=== PATIENT | female | born 1945 | race Caucasian/White ===

== ENCOUNTER 2021-03-31 12:54 | Inpatient (IN) | payer MEDICARE, OTHER ==
[2021-03-31] MEDS ORDERED: ATORVASTATIN 80 MG TAB PO STA (13:02)
[2021-03-31] MEDS ORDERED: LIDOCAINE 1% INJ 10MG/ML (20 ML MDV) ONE (13:03)
[2021-03-31] MEDS ORDERED: HEPARIN SODIUM 1,000 UN/ML (10ML VL) ONE (13:03)
[2021-03-31] MEDS ORDERED: VERAPAMIL 2.5 MG/ML 2 ML AMP ONE (13:03)
[2021-03-31 13:05] LABS: Basophils % (A) 0 %; Eosinophils % (A) 0 %; HGB 12.1 gm/dL (11.4-16.0); Lymphocytes # (A) 0.8 k/uL (1.0-4.8); Lymphocytes % (A) 9 %; MCH 32.3 pg (25.0-35.0); MCHC 32.7 g/dL (31.0-37.0); MCV 98.9 fL (80.0-100.0); Macrocytosis Slight; Mean Platelet Volume 8.8; Monocytes # (A) 0.7 k/uL (0-1.0); Monocytes % (A) 9 %; Neutrophils # (A) 6.4 k/uL (1.3-7.7); Neutrophils % (A) 79 %; Platelet Count 189 k/uL (150-450); RBC 3.74 m/uL (3.80-5.40); RDW 14.9 % (11.5-15.5); WBC 8.1 k/uL (3.8-10.6)
[2021-03-31] MEDS ORDERED: MIDAZOLAM PF (FBP) 2 MG/2 ML VIAL IVP STA (13:06)
[2021-03-31] MEDS ORDERED: MIDAZOLAM 1 MG/ML 5 ML VIAL IVP STA (13:06)
[2021-03-31] MEDS ORDERED: fentaNYL (PF) 50 MCG/ML 2 ML AMP IVP STA (13:06)
[2021-03-31] MEDS ORDERED: MIDAZOLAM HCL 5 MG/ML IVP STA (13:06)
[2021-03-31] MEDS ORDERED: MIDAZOLAM 2 MG/2 ML VIAL IVP STA (13:06)
[2021-03-31] MEDS ORDERED: SODIUM CHLORIDE 0.9% 1,000 ML IV STA (13:07)
[2021-03-31 13:13] LABS: INR 3.9 (<1.2); Prothrombin Time 37.4 sec (9.0-12.0)
[2021-03-31 13:14] LABS: Albumin 3.8 g/dL (3.5-5.0); Calcium 9.6 mg/dL (8.4-10.2); Magnesium 1.9 mg/dL (1.6-2.3); Potassium 4.9 mmol/L (3.5-5.1); Total Bilirubin 1.1 mg/dL (0.2-1.3); Total Protein 5.9 g/dL (6.3-8.2)
--- NOTE | 2021-03-31 13:21 | ED ---
General Adult HPI - General Chief complaint: Chest Pain Stated complaint: stemi Time Seen by Provider: 03/31/21 12:55 Source: patient, EMS, RN notes reviewed, old records reviewed Mode of arrival: EMS Limitations: no limitations - History of Present Illness Initial comments: 75-year-old female presented as an out of Hospital ST segment elevated [place]. The Certified Flight Instructor was activated prior to the patient's arrival. Upon arrival the patient is pale, hypotensive, tachycardic. She had developed upper chest pain and right arm pain over the past 12 hours. She is a significant history including atrial fibrillation status post pacemaker, mitral valve replacement, and coronary artery disease status post bypass. She is on Coumadin. She had some nausea and vomiting associated with her chest pain. - Related Data Allergies Allergy/AdvReac Type Severity Reaction Status Date / Time amoxicillin Allergy Unknown Verified 03/31/21 13:13 Review of Systems ROS Statement: Those systems with pertinent positive or pertinent negative responses have been documented in the HPI. ROS Other: All systems not noted in ROS Statement are negative. Past Medical History History of Any Multi-Drug Resistant Organisms: None Reported Past Psychological History: No Psychological Hx Reported Smoking Status: Never smoker Past Alcohol Use History: None Reported Past Drug Use History: None Reported General Exam Limitations: no limitations General appearance: alert, in distress Head exam: Present: atraumatic, normocephalic Eye exam: Present: normal appearance, PERRL ENT exam: Present: normal exam Neck exam: Present: normal inspection. Absent: tenderness, meningismus Respiratory exam: Present: normal lung sounds bilaterally. Absent: respiratory distress, wheezes Cardiovascular Exam: Present: regular rate, tachycardia GI/Abdominal exam: Present: soft. Absent: distended, tenderness, guarding Extremities exam: Present: normal capillary refill. Absent: pedal edema Neurological exam: Present: alert, oriented X3, CN II-XII intact. Absent: motor sensory deficit Psychiatric exam: Present: anxious Skin exam: Present: warm, pallor Course Vital Signs 03/31/21 03/31/21 03/31/21 12:57 12:59 13:02 Pulse Rate 146 H 147 H 150 H Respiratory 20 18 20 Rate Blood Pressure 89/69 99/70 96/70 O2 Sat by Pulse 97 98 100 Oximetry EKG Findings - EKG Comments: EKG Findings:: Initial EKG, narrow complex tachycardia with significant ST segment elevation inferiorly. Rate of 148, suspect atrial flutter with 2-1 conduction. QRS complexes 116, QTC is 546. Repeat EKG after cardioversion, electronically paced rhythm narrow complex with improved ST segment elevation but still persistent in the inferior leads with reciprocal change. Rate is 66. NJ interval 118, QRS duration 114, QTC 427. Procedures - Procedures Initial comment: Patient presenting with ischemic EKG and a supraventricular tachycardia with hypotension. Electrical cardioversion was performed in the emergency department. Patient gave verbal consent. She was premedicated for procedural sedation with Versed and fentanyl. She had supplemental oxygen, IV established, she was placed on the monitor. 100 J was delivered and the patient converted into a "paced rhythm. - Procedural Sedation Procedural Sedation Start Time: 13:05 Procedural Sedation Stop Time: 13:20 Indications: other (Cardioversion) ASA Class: III Mallampati Airway Score: 2 Preparation: court recording monitor applied, pulse oximeter, supplemental O2 applied, suction/airway equipment at bedside, IV secured Fentanyl: IV Fentanyl Dose: 50 Midazolam: IV Midazolam Dose: 2 Complications: none Patient Tolerated Procedure: well, no complications Medical Decision Making - Medical Decision Making 69 sexual female presenting with ST segment elevated WI. Upon arrival patient i s pale, hypotensive she is tachycardic in what appears to be in atrial flutter with 2-[address] segment elevation and reciprocal depression. Dr. Mackay had been contacted prior to the patient's arrival and he is able to evaluate the patient in the emergency department. We agreed to cardiovert the patient prior to Certified Flight Instructor. She was given fentanyl and Versed and 100 J cardioversion. She converted with significant improvement in ST segment elevation however there was still ST segment changes requiring intervention. She's taken urgently to the Certified Flight Instructor. Case discussed with Dr. Wagner who will admit. - Lab Data Result diagrams: 03/31/21 12:58 03/31/21 12:58 Lab Results 03/31/21 03/31/21 03/31/21 Range/Units 12:58 12:58 12:58 WBC 8.1 (3.8-10.6) k/uL RBC 3.74 L (3.80-5.40) m/uL Hgb 12.1 (11.4-16.0) gm/dL Hct 37.0 (34.0-46.0) % MCV 98.9 (80.0-100.0) fL MCH 32.3 (25.0-35.0) pg MCHC 32.7 (31.0-37.0) g/dL RDW 14.9 (11.5-15.5) % Plt Count 189 (150-450) k/uL MPV 8.8 Neutrophils % 79 % Lymphocytes % 9 % Monocytes % 9 % Eosinophils % 0 % Basophils % 0 % Neutrophils # 6.4 (1.3-7.7) k/uL Lymphocytes # 0.8 L (1.0-4.8) k/uL Monocytes # 0.7 (0-1.0) k/uL Eosinophils # 0.0 (0-0.7) k/uL Basophils # 0.0 (0-0.2) k/uL Macrocytosis Slight PT 37.4 H (9.0-12.0) sec INR 3.9 H (<1.2) APTT 28.0 (22.0-30.0) sec Sodium 139 (137-145) mmol/L Potassium 4.9 (3.5-5.1) mmol/L Chloride 103 (98-107) mmol/L Carbon Dioxide 22 (22-30) mmol/L Anion Gap 14 mmol/L BUN 54 H (7-17) mg/dL Creatinine 1.13 H (0.52-1.04) mg/dL Est GFR (CKD-EPI)AfAm 55 (>60 ml/min/1.73 sqM) Est GFR (CKD-EPI)NonAf 47 (>60 ml/min/1.73 sqM) Glucose 260 H (74-99) mg/dL Calcium 9.6 (8.4-10.2) mg/dL Magnesium 1.9 (1.6-2.3) mg/dL Total Bilirubin 1.1 (0.2-1.3) mg/dL AST 519 H (14-36) U/L ALT 603 H (4-34) U/L Alkaline Phosphatase 129 H (38-126) U/L Total Protein 5.9 L (6.3-8.2) g/dL Albumin 3.8 (3.5-5.0) g/dL Disposition Clinical Impression: ST elevation myocardial infarction (STEMI) Disposition: ADMITTED IP TO THIS HOSP Condition: Serious Is patient prescribed a controlled substance at d/c from ED?: No Referrals: Linh Pritchett DO [Primary Care Provider] - 1-2 days Decision to Admit Reason: Admit from EC Decision Date: 03/31/21 Decision Time: 13:21
[2021-03-31] MEDS: MIDAZOLAM (PF) 5 MG/ML 2 ML VIAL IVP STA ×2 (13:24→13:28)
--- NOTE | 2021-03-31 13:24 | XR ---
EXAMINATION TYPE: XR chest 1V portable DATE OF EXAM: 03/31/2021 HISTORY: Shortness of breath. COMPARISON: None. TECHNIQUE: Single view of the chest is submitted. FINDINGS: Demonstrated are scattered senescent parenchymal change. There is no evidence for focal infiltrate. There is evidence of cardiomegaly. Dual-lead pacer is in place. Hilar and mediastinal structures are within normal limits. Degenerative changes are seen of the dorsal spine. IMPRESSION: 1. Chronic changes without evidence for acute pulmonary disease.
[2021-03-31] MEDS ORDERED: LIDOCAINE 1% INJ 10MG/ML (20 ML MDV) SQ ONE (13:29)
[2021-03-31] MEDS ORDERED: IV FLUID CONTINUATION 1,000 ML IV ONE (13:32)
[2021-03-31] MEDS ORDERED: IOPAMIDOL-370 125ML BTL INJ ONE (13:52)
[2021-03-31] MEDS ORDERED: PHYTONADIONE 2 MG in SODIUM CHLORIDE 0.9% 50 ML IVPB STA (13:59)
[2021-03-31] MEDS ORDERED: NITROGLYCERIN SL TABS 0.4 MG TAB SUBLINGUAL PRN (14:10)
[2021-03-31] MEDS ORDERED: RX INFO: IV CONTRAST WAS GIVEN 1 EACH MISC MISCELLANE PRN (14:12)
[2021-03-31] MEDS ORDERED: SODIUM CHLORIDE 0.9% 1,000 ML IV SCH (14:15)
--- NOTE | 2021-03-31 14:21 | P.CRDCN ---
History of Present Illness Consult date: 03/31/21 Chief complaint: Chest pain History of present illness: This is a 75-year-old female patient with coronary artery disease and status post coronary artery that was grafting with KEVIN to LAD and SVG to diagonal as well as SVG to RCA and also valvular heart disease and status post mitral valve replacement using mechanical valve, the surgery was performed at [facility] 20 years ago according to the patient as well as history of hypertensi on and dyslipidemia and also history of an AICD was brought to the emergency department by ambulance with chest discomfort. The patient does follow with a factory laborer at [facility]. Earlier today she was not feeling well where she suddenly she started experiencing chest discomfort and right arm and right shoulder discomfort. Ambulance was called and the patient was found to be tachycardic with an EKG showing what it seems to be an SVT and significant ST segment elevation inferiorly. Because of pressure was borderline and because she was having chest discomfort the patient received 100 J and she was cardioverted into sinus rhythm. The repeated EKG after she was cardioverted revealed sinus rhythm with ST elevation inferiorly. For that reason the patient was taken emergently for heart catheterization and that revealed the patency of the KEVIN to LAD and SVG to diagonal with mild disease involving the left circumflex coronary artery and occluded right coronary artery with occluded SVG to RCA. The occlusion seems to be chronic and not acute. The patient tolerated the procedure very well. Currently she is chest pain-free. She denies any shortness of breath and denies any dizziness or lightheadedness. Her pressure has improved after she was cardioverted. The procedure was performed from the right groin. On examination she has mechanical first heart sound with very significant systolic murmur at the right and left upper sternal border and also in the apical area. An echocardiogram is in process to be done. Past Medical History History of Any Multi-Drug Resistant Organisms: None Reported Past Psychological History: No Psychological Hx Reported Smoking Status: Never smoker Past Alcohol Use History: None Reported Past Drug Use History: None Reported Medications and Allergies Home Medications Medication Instructions Recorded Confirmed Type Aspirin EC [Ecotrin Low Dose] 81 mg PO DAILY 03/31/21 03/31/21 History Atorvastatin [Lipitor] 40 mg PO HS 03/31/21 03/31/21 History Carvedilol [Coreg] 12.5 mg PO BID 03/31/21 03/31/21 History Cholecalciferol (Vitamin D3) 125 mcg PO DAILY 03/31/21 03/31/21 History [Vitamin D3 (125 MCG = 5,000 IU)] Cyanocobalamin (Vitamin B-12) 1,000 mcg PO DAILY 03/31/21 03/31/21 History [Vitamin B-12] Digoxin [Lanoxin] 125 mcg PO DAILY 03/31/21 03/31/21 History Escitalopram [Lexapro] 10 mg PO DAILY 03/31/21 03/31/21 History Furosemide [Lasix] 20 mg PO DAILY 03/31/21 03/31/21 History Isosorbide Mononitrate ER [Imdur] 60 mg PO DAILY 03/31/21 03/31/21 History Lansoprazole [Prevacid] 30 mg PO DAILY 03/31/21 03/31/21 History Nitroglycerin Sl Tabs [Nitrostat] 0.4 mg SUBLINGUAL Q5M PRN 03/31/21 03/31/21 History Sotalol [Betapace] 120 mg PO BID 03/31/21 03/31/21 History lisinopriL [Zestril] 5 mg PO DAILY 03/31/21 03/31/21 History metFORMIN HCL [Glucophage] 1,000 mg PO BID 03/31/21 03/31/21 History Allergies Allergy/AdvReac Type Severity Reaction Status Date / Time amoxicillin Allergy Unknown Verified 03/31/21 13:13 Physical Exam Vitals: Vital Signs Pulse Resp BP Pulse Ox 03/31/21 13:11 69 20 128/81 100 03/31/21 13:09 66 20 109/66 100 03/31/21 13:07 148 H 20 104/77 100 03/31/21 13:02 150 H 20 96/70 100 03/31/21 12:59 147 H 18 99/70 98 03/31/21 12:57 146 H 20 89/69 97 Intake and Output 03/30/21 03/31/21 03/31/21 22:59 06:59 14:59 Intake Total 100 Balance 100 Intake: IV 100 Other: Weight 58.967 kg - Constitutional General appearance: no acute distress - Respiratory Respiratory: bilateral: diminished - Cardiovascular Rhythm: regular Abnormal Heart Sounds: systolic murmur Results 03/31/21 12:58 03/31/21 12:58 Cardiac Enzymes 03/31/21 03/31/21 Range/Units 12:58 12:58 AST 519 H (14-36) U/L Troponin I 0.323 H* (0.000-0.034) ng/mL Coagulation 03/31/21 Range/Units 12:58 PT 37.4 H (9.0-12.0) sec APTT 28.0 (22.0-30.0) sec CBC 03/31/21 Range/Units 12:58 WBC 8.1 (3.8-10.6) k/uL RBC 3.74 L (3.80-5.40) m/uL Hgb 12.1 (11.4-16.0) gm/dL Hct 37.0 (34.0-46.0) % Plt Count 189 (150-450) k/uL Comprehensive Metabolic Panel 03/31/21 Range/Units 12:58 Sodium 139 (137-145) mmol/L Potassium 4.9 (3.5-5.1) mmol/L Chloride 103 (98-107) mmol/L Carbon Dioxide 22 (22-30) mmol/L BUN 54 H (7-17) mg/dL Creatinine 1.13 H (0.52-1.04) mg/dL Glucose 260 H (74-99) mg/dL Calcium 9.6 (8.4-10.2) mg/dL AST 519 H (14-36) U/L ALT 603 H (4-34) U/L Alkaline Phosphatase 129 H (38-126) U/L Total Protein 5.9 L (6.3-8.2) g/dL Albumin 3.8 (3.5-5.0) g/dL Current Medications Generic Name Dose Route Start Last Admin Trade Name Freq PRN Reason Stop Dose Admin Aspirin 325 mg 04/01/21 09:00 Aspirin 325 Mg Tab PO DAILY [facility] Atorvastatin Calcium 40 mg 03/31/21 21:00 Atorvastatin 40 Mg Tab PO HS [facility] Carvedilol 12.5 mg 03/31/21 21:00 Carvedilol 12.5 Mg Tab PO BID [facility] Digoxin 125 mcg 04/01/21 09:00 Digoxin 250 Mcg Tab PO DAILY [facility] Escitalopram Oxalate 10 mg 04/01/21 09:00 Escitalopram 10 Mg Tab PO DAILY [facility] Furosemide 20 mg 04/01/21 09:00 Furosemide 20 Mg Tab PO DAILY [facility] Phytonadione 2 mg/ Sodium 50.2 mls @ 100 mls/hr 03/31/21 13:59 Chloride IVPB 03/31/21 14:29 ONCE STA Sodium Chloride 1,000 mls @ 75 mls/hr 03/31/21 14:15 Saline 0.9% IV 03/31/21 20:16 .[id number] [facility]A Isosorbide Mononitrate 60 mg 04/01/21 09:00 Isosorbide Mononitrate Er 60 Mg Tab.Er.24h PO DAILY [facility] Lisinopril 5 mg 04/01/21 09:00 Lisinopril 5 Mg Tab PO DAILY [facility] Miscellaneous Information 1 each 03/31/21 14:12 Rx Info: Iv Contrast Was Given 1 Each Misc MISCELLANE 04/02/21 14:12 DAILY PRN Per Protocol Nitroglycerin 0.4 mg 03/31/21 14:10 Nitroglycerin Sl Tabs 0.4 Mg Tab SUBLINGUAL Q5M PRN Chest Pain Non-Formulary Medication 81 mg 04/01/21 09:00 Aspirin Ec PO DAILY [facility] Non-Formulary Medication 125 mcg 04/01/21 09:00 Cholecalciferol (Vitamin D3) [Vitamin D3 (125 Mcg = 5,000 Iu)] PO DAILY [facility] Non-Formulary Medication 1,000 mcg 04/01/21 09:00 Cyanocobalamin (Vitamin B-12) [Vitamin B-12] PO DAILY [facility] Non-Formulary Medication 30 mg 04/01/21 09:00 Lansoprazole [Prevacid] PO DAILY [facility] Sotalol HCl 120 mg 03/31/21 21:00 Sotalol 120 Mg Tab PO BID [facility] Intake and Output 03/30/21 03/31/21 03/31/21 22:59 06:59 14:59 Intake Total 100 Balance 100 Intake: IV 100 Other: Weight 58.967 kg Patient Weight 04/01/21 06:59 Weight 58.967 kg 03/31/21 12:58 03/31/21 12:58 Assessment and Plan Assessment: Assessment #1 supraventricular tachycardia and status post cardioversion #2 coronary artery disease and status post heart catheterization without intervention #3 valvular heart disease with a prior mechanical prosthesis in mitral position #4 hypertension #5 dyslipidemia #6 status post an AICD Plan #1 restart the patient's medications including the beta yecenia as well as digoxin #2 she is on sotalol as well as digoxin as an outpatient we will restart that #3 continue anticoagulation was, the #4 obtain an echocardiogram was Doppler #6 standard groin he care #7 continue monitoring the INR #8 follow-up with the patient
[2021-03-31 14:45] LABS: Glucose,Whole Blood 171 mg/dL (75-99)
--- NOTE | 2021-03-31 14:53 | CC ---
CARDIAC CATHETERIZATION REPORT DATE OF SERVICE: 03/31/2021 PERFORMING PHYSICIAN: Brian Mackay M.D. PROCEDURE PERFORMED: 1. Selective left and right coronary angiogram. 2. Left heart catheterization. INDICATION: This is a very pleasant 75-year-old female patient who presented with chest discomfort and EKG was concerning for acute ST elevation myocardial infarction. APPROACH: Right common femoral artery. COMPLICATIONS: None. LEVEL OF SEDATION: Moderate, with sedation length of 34 minutes. PROCEDURE DESCRIPTION: After obtaining informed consent, the patient was brought to the cardiac labor contract analyst. The right common femoral artery was cannulated using micropuncture technique. The micropuncture wire passed easily. Then I placed a 6-Irish sheath in the right common femoral artery. Selective left and right coronary angiogram was performed with JL4 and JR4 catheters. heart catheterization was not performed. The KEVIN to LAD was performed using an IM catheter. The SVG to diagonal angiogram was performed using the JR4 catheter. The SVG to RCA angiogram was performed using the multipurpose catheter. SELECTIVE CORONARY ANGIOGRAM: 1. The left main is calcified with mild disease only. It bifurcates into LCX and LAD. 2. The LCX is a large-caliber vessel. It is a nondominant vessel and appeared to have mild disease only. It gives rise to first and second obtuse marginal branches. Both appeared to have mild disease only. 3. The LAD. The proximal LAD has a lesion that appeared to be in the range of 60% to 70%. Competitive flow was seen in the mid LAD coming from the KEVIN. 4. The right coronary artery is chronically occluded by the ostium. ANGIOGRAM OF CORONARY BYPASSES: 1. The KEVIN to LAD is patent. 2. The SVG to diagonal has multiple lesions that appeared to be in the range of 40% to 50%. only. 3. The SVG to right coronary artery is occluded. CONCLUSION: 1. Severe disease involving the proximal left anterior descending artery. The KEVIN to LAD is patent. 2. Patent SVG to diagonal branch as well. 3. Mild disease involving the left circumflex system. 4. Occluded right coronary artery. The SVG to RCA is occluded. POSTPROCEDURE MANAGEMENT: 1. Given the above anatomy and in the absence of any acute occlusion, I advise maximized medical treatment. 2. We will obtain an echocardiogram with Doppler. 3. Follow up with the patient. MMODL / IJN: [id number] /
[2021-03-31] MEDS ORDERED: predniSONE 20 MG TAB PO SCH (17:00)
[2021-03-31] MEDS: carvediloL 12.5 MG TAB PO SCH (19:05)
[2021-03-31] MEDS: SOTALOL 120 MG TAB PO SCH (21:01)
--- NOTE | 2021-04-01 01:01 | P.HPIM ---
History of Present Illness H&P Date: 03/31/21 Chief Complaint: RT arm discomfort Patient is a 75-year-old female with a known history of coronary artery disease status post CABG, mitral valve replacement mechanical valve about 20 years ago at [facility], history of AICD placement, hypertension, hyperlipidemia wa s brought to the hospital by EMS due to complaints of chest discomfort and right upper extremity discomfort. Patient states that she went to her daughter's place yesterday and was feeling very good. Today afternoon patient suddenly developed right arm and shoulder discomfort as well as chest discomfort. Patient had some nausea associated with chest discomfort. EMS was called and patient was found to be tachycardic and EKG was showing SVT. Patient received cardioversion and converted to sinus rhythm in the ER. Repeat EKG showed sinus rhythm with ST elevation in the inferior leads. [employer] was activated and patient underwent emergent cardiac catheterization which showed mild disease in volving the left circumflex and occluded right coronary artery with occluded SVG to RCA. No intervention was done. Patient was transferred to MICU. Currently denies any complaints of chest pain or shortness of breath. No headache or dizziness or lightheadedness. Chest x-ray showed chronic changes without evidence of acute pulmonary disease. Laboratory data showed WBC 8.1 hemoglobin 12.1 platelets 189 INR 3.9 Sodium 139 potassium 4.9 chloride 103 BUN 54 and creatinine 1.13 AST 519, ALT 603 and alk phos 129 Troponin 0 0.323, 1.150 Review of Systems Constitutional: Patient denies any fever or chills . No generalized weakness or weight loss. Abdomen: Patient denied nausea vomiting and diarrhea and abdominal pain. Cardiovascular: Patient denies any chest pain or short of breath no palpitations. Respiratory: patient denied any cough or sputum production. No shortness of breath Neurologic: Patient denied any numbness or tingling headache. Musculoskeletal: Patient denies any complaints of joint swelling or deformity. Skin: Negative Psychiatric: Negative Endocrine: No heat or cold intolerance. No recent weight gain. Genitourinary: No dysuria or hematuria. All other 14 point ROS negative except the above Past Medical History History of Any Multi-Drug Resistant Organisms: None Reported Past Psychological History: No Psychological Hx Reported Smoking Status: Never smoker Past Alcohol Use History: None Reported Past Drug Use History: None Reported Medications and Allergies Home Medications Medication Instructions Recorded Confirmed Type Aspirin EC [Ecotrin Low Dose] 81 mg PO DAILY 03/31/21 03/31/21 History Atorvastatin [Lipitor] 40 mg PO HS 03/31/21 03/31/21 History Carvedilol [Coreg] 12.5 mg PO BID 03/31/21 03/31/21 History Cholecalciferol (Vitamin D3) 125 mcg PO DAILY 03/31/21 03/31/21 History [Vitamin D3 (125 MCG = 5,000 IU)] Cyanocobalamin (Vitamin B-12) 1,000 mcg PO DAILY 03/31/21 03/31/21 History [Vitamin B-12] Digoxin [Lanoxin] 125 mcg PO DAILY 03/31/21 03/31/21 History Escitalopram [Lexapro] 10 mg PO DAILY 03/31/21 03/31/21 History Furosemide [Lasix] 20 mg PO DAILY 03/31/21 03/31/21 History Isosorbide Mononitrate ER [Imdur] 60 mg PO DAILY 03/31/21 03/31/21 History Lansoprazole [Prevacid] 30 mg PO DAILY 03/31/21 03/31/21 History Nitroglycerin Sl Tabs [Nitrostat] 0.4 mg SUBLINGUAL Q5M PRN 03/31/21 03/31/21 H istory Sotalol [Betapace] 120 mg PO BID 03/31/21 03/31/21 History lisinopriL [Zestril] 5 mg PO DAILY 03/31/21 03/31/21 History metFORMIN HCL [Glucophage] 1,000 mg PO BID 03/31/21 03/31/21 History Allergies Allergy/AdvReac Type Severity Reaction Status Date / Time amoxicillin Allergy Unknown Verified 03/31/21 13:13 Physical Exam Vitals: Vital Signs Temp Pulse Resp BP Pulse Ox 03/31/21 16:00 98.4 F 56 L 16 118/60 98 03/31/21 15:00 60 17 116/56 99 03/31/21 14:33 62 8 L 03/31/21 13:11 69 20 128/81 100 03/31/21 13:09 66 20 109/66 100 03/31/21 13:07 148 H 20 104/77 100 03/31/21 13:02 150 H 20 96/70 100 03/31/21 12:59 147 H 18 99/70 98 03/31/21 12:57 146 H 20 89/69 97 Intake and Output 03/31/21 03/31/21 03/31/21 06:59 14:59 22:59 Intake Total 100 250 Output Total 0 Balance 100 250 Intake: IV 100 150 Sodium Chloride 0.9% 1, 150 000 ml @ 75 mls/hr IV . [id number] [facility] Rx#:[id number] Oral 100 Output: Urine 0 Other: Weight 58.967 kg PHYSICAL EXAMINATION: Patient is lying in the bed comfortably, no acute distress, awake alert and oriented.. HEENT: Normocephalic. Neck is supple. Pupils reactive. Nostrils clear. Oral cavity is moist. Neck reveals no JVD, carotid bruits, or thyromegaly. CHEST EXAMINATION: Trachea is central. Symmetrical expansion. Lung angela clear to auscultation and percussion. CARDIAC: Normal S1, S2 with no gallops. No murmurs Mechanical mitral valve. ABDOMEN: Soft. Bowel sounds normal. No organomegaly. No abdominal bruits. Extremities: reveal no edema. No clubbing or cyanosis Neurologically awake, alert, oriented x3 with well-coordinated movements. No focal deficits noted Skin: No rash or skin lesions. Psychiatric: Coperative. Nonsuicidal Musculoskeletal: No joint swelling or deformity. Normal range of motion. Results CBC & Chem 7: 03/31/21 12:58 03/31/21 12:58 Labs: Abnormal Lab Results - Last 24 Hours (Table) 03/31/21 03/31/21 03/31/21 Range/Units 12:58 12:58 12:58 RBC 3.74 L (3.80-5.40) m/uL Lymphocytes # 0.8 L (1.0-4.8) k/uL PT 37.4 H (9.0-12.0) sec INR 3.9 H (<1.2) BUN 54 H (7-17) mg/dL Creatinine 1.13 H (0.52-1.04) mg/dL Glucose 260 H (74-99) mg/dL POC Glucose (mg/dL) (75-99) mg/dL AST 519 H (14-36) U/L ALT 603 H (4-34) U/L Alkaline Phosphatase 129 H (38-126) U/L Troponin I (0.000-0.034) ng/mL Total Protein 5.9 L (6.3-8.2) g/dL 03/31/21 03/31/21 03/31/21 Range/Units 12:58 14:43 16:01 RBC (3.80-5.40) m/uL Lymphocytes # (1.0-4.8) k/uL PT (9.0-12.0) sec INR (<1.2) BUN (7-17) mg/dL Creatinine (0.52-1.04) mg/dL Glucose (74-99) mg/dL POC Glucose (mg/dL) 171 H (75-99) mg/dL AST (14-36) U/L ALT (4-34) U/L Alkaline Phosphatase (38-126) U/L Troponin I 0.323 H* 1.150 H* (0.000-0.034) ng/mL Total Protein (6.3-8.2) g/dL Thrombosis Risk Factor Assmnt - DVT/VTE Prophylaxis DVT/VTE Prophylaxis: Pharmacologic Prophylaxis ordered Assessment and Plan Assessment: SVT status post cardioversion. Atypical chest discomfort and right upper extremity discomfort. Status post cardiac catheterization without intervention. Coronary disease with history of CABG Valvular heart disease with history of mitral valve replacement History of AICD placement Hypertension Hyperlipidemia Coumadin dosing Plan: Patient was started back on coreg, sotalol and digoxin and continue with Coumadin dosing. Patient is status post cardiac catheterization and no intervention was done. Continue with telemetry monitoring. Cardiology is on board. Continue with home medications and follow-up closely. Time with Patient: Greater than 30
[2021-04-01 04:10] LABS: Basophils % (A) 0 %; Eosinophils % (A) 0 %; HCT 34.1 % (34.0-46.0); HGB 11.2 gm/dL (11.4-16.0); Lymphocytes # (A) 0.4 k/uL (1.0-4.8); Lymphocytes % (A) 8 %; MCH 32.5 pg (25.0-35.0); MCHC 32.8 g/dL (31.0-37.0); MCV 99.1 fL (80.0-100.0); Macrocytosis Slight; Mean Platelet Volume 7.8; Monocytes # (A) 0.3 k/uL (0-1.0); Monocytes % (A) 6 %; Neutrophils # (A) 4.8 k/uL (1.3-7.7); Neutrophils % (A) 85 %; Platelet Count 140 k/uL (150-450); RBC 3.44 m/uL (3.80-5.40); WBC 5.6 k/uL (3.8-10.6)
[2021-04-01 04:19] LABS: Potassium 4.9 mmol/L (3.5-5.1)
[2021-04-01 04:20] LABS: Calcium 9.3 mg/dL (8.4-10.2)
--- NOTE | 2021-04-01 08:57 | US ---
EXAMINATION TYPE: US liver DATE OF EXAM: 04/01/2021 COMPARISON: Outside CT July 21, 2020 CLINICAL HISTORY: elevated liver Enzymes. Takes multiple medications; lung CA EXAM MEASUREMENTS: Liver Length: 15.6 cm Gallbladder Wall: 0.5 cm CBD: 0.1 cm Right Kidney: 10.8 x 5.9 x 4.4 cm Pancreas: wnl Liver: wnl Gallbladder: thickened wall with cystic component noted mid wall; hyperechoic focus in fundal wall w ith comet tail artifact suggestive of adenomyomatosis; pericholecystic fluid also seen. Evidence for sonographic Ferrari's sign: no CBD: wnl Right Kidney: mid medial cyst seen = 4.0 x 4.5 x 3.3cm; multiple shadowing small renal calcification s imaged mid pole. Visualized pancreas appears within normal limits. Visualized liver shows no worrisome mass or ductal dilatation. Gallbladder shows mild concentric wall thickening. No shadowing mobile gallstones. Consid er product of underlying CHF. No right-sided hydronephrosis. There is virtually exophytic 4.0 cm thin -walled cyst from the right kidney upper to midpole level redemonstrated. IMPRESSION: No worrisome focal intrahepatic mass or intrahepatic ductal dilatation.
[2021-04-01] MEDS ORDERED: NON FORMULARY DRUG (Aspirin Ec 81 MG Tablet) PO SCH (09:00)
[2021-04-01] MEDS ORDERED: ASPIRIN 325 MG TAB PO SCH (09:00)
[2021-04-01] MEDS: CHOLECALCIFEROL 25 MCG (1000 IU) TABLET PO SCH (09:16)
[2021-04-01] MEDS: ASPIRIN 81 MG PO SCH (09:16)
[2021-04-01] MEDS: PANTOPRAZOLE 40 MG TABLET PO SCH (09:16)
[2021-04-01] MEDS: lisinopriL 5 MG TAB PO SCH (09:16)
[2021-04-01] MEDS: CYANOCOBALAMIN 500 MCG TAB PO SCH (09:16)
[2021-04-01] MEDS: FUROSEMIDE 20 MG TAB PO SCH (09:16)
[2021-04-01] MEDS: SOTALOL 120 MG TAB PO SCH ×2 (09:16→21:13)
[2021-04-01] MEDS: DIGOXIN 125 MCG TAB PO SCH (09:16)
[2021-04-01] MEDS: carvediloL 12.5 MG TAB PO SCH ×2 (09:16→17:55)
[2021-04-01] MEDS: ISOSORBIDE MONONITRATE ER 60 MG TAB.ER.24H PO SCH (09:17)
[2021-04-01] MEDS: ESCITALOPRAM 10 MG TAB PO SCH (09:17)
--- NOTE | 2021-04-01 09:57 | PN ---
PROGRESS NOTE Mrs. Olivera is a 75-year-old female with a history of mitral valve replacement with a metallic valve, history of coronary artery disease, history of triple bypass who came in with SVT and ST-segment changes. She underwent a cardiac catheterization by Dr. Mackay and was found to have a patent KEVIN to the LAD, patent saphenous vein graft to the diagonal branch and chronically occluded saphenous vein graft to the right artery as well as chronic occluded RCA. Her left circumflex had no evidence of high-grade stenosis. She was treated medically. She is feeling well this morning. She denies chest pain. Her breathing has been stable. She denies any dizziness or palpitation. She continued to be in sinus mechanism. She continues on aspirin once a day Lipitor 40 mg daily, digoxin 0.125 mg daily, Lasix 20 mg daily, isosorbide mononitrate 30 mg daily, lisinopril 5 mg daily, and sotalol 120 mg twice a day. PHYSICAL EXAMINATION: Blood pressure in the 120-1 40s with heart in 60s. Lungs: Clear. Heart: Regular rate and rhythm S1, S2. No S3 with a systolic murmur and a prosthetic mitral sound. No diastolic murmur. Abdomen: Soft nontender. Extremities: No edema. LAB DATA: Lab data revealed BUN and creatinine 15 and 0.91, potassium 4.9, hemoglobin of 11.2. Her peak troponin is 1.5. IMPRESSION: 1. Non ST-segment elevation myocardial infarction. 2. Supraventricular tachyarrhythmia, probably causing the troponin elevation. 3. History of coronary artery disease with chronically occluded saphenous vein graft to the right coronary artery. 4. Status post ICD implant. 5. Status post mitral valve prosthetic replacement. 6. Hypertension. 7. Hyperlipidemia. RECOMMENDATION: We will continue present therapy. Increase her level of activity. Obtain echocardiogram with Doppler. I will follow her INR to restart the Coumadin and if stable I would expect she should be able to be transferred to the telemetry floor and depending on her progress, further recommendations will be made. MMODL / IJN: [id number] /
--- NOTE | 2021-04-01 11:16 | ECHOF ---
Referral Reason:ACS MEASUREMENTS -------- HEIGHT: 160.0 cm WEIGHT: 59.0 kg BP: 160/70 RVIDd: 3.5 cm (< 3.3) IVSd: 1.2 cm (0.6 - 1.1) LVIDd: 6.1 cm (3.9 - 5.3) LVPWd: 1.1 cm (0.6 - 1.1) IVSs: 1.7 cm LVIDs: 4.7 cm LVPWs: 1.2 cm LA Diam: 3.8 cm (2.7 - 3.8) LAESV Index (A-L): 62.84 ml/m Ao Diam: 2.9 cm (2.0 - 3.7) AV Cusp: 1.9 cm (1.5 - 2.6) MV E Toni: 1.26 m/s MV DecT: 128 ms MV A Toni: 1.03 m/s MV E/A Ratio: 1.23 AR PHT: 592 ms RAP: 5.00 mmHg RVSP: 52.75 mmHg FINDINGS -------- Sinus rhythm. This was a technically adequate study. The left ventricle is mildly dilated. There is borderline concentric left ventricular hypertrophy. Overall left ventricular systolic function is moderately impaired with, an EF between 35 - 40 %. Basal inferior LV wall motion is hypokinetic. Basal inferoseptal LV wall motion is hypokinetic. Mid inferior LV wall motion is hypokinetic. Apical inferior LV wall motion is hypokinetic. The right ventricle is mildly enlarged. LA is severely dilated >40 ml/m2 The right atrium is normal in size. Interatrial and interventricular septum intact. Aortic valve is trileaflet and is mildly thickened. There is mild aortic regurgitation. The peak and mean MV gradients are 11.25mmHg 3.27mmHg as measured by doppler. There is physiologic regurgitation of the prosthetic mitral valve. Moderate to severe tricuspid regurgitation present. There is moderate pulmonary hypertension. The right ventricular systolic pressure, as measured by Doppler, is 52.75mmHg. Trace/mild (physiologic) pulmonic regurgitation. The aortic root size is normal. Normal inferior vena cava with normal inspiratory collapse consistent with estimated right atrial pre ssure of 5 mmHg. There is no pericardial effusion. CONCLUSIONS -------- 1. The left ventricle is mildly dilated. 2. There is borderline concentric left ventricular hypertrophy. 3. Overall left ventricular systolic function is moderately impaired with, an EF between 35 - 40 %. 4. Basal inferior LV wall motion is hypokinetic. 5. Basal inferoseptal LV wall motion is hypokinetic. 6. Mid inferior LV wall motion is hypokinetic. 7. Apical inferior LV wall motion is hypokinetic. 8. The right ventricle is mildly enlarged. 9. LA is severely dilated >40 ml/m2 10. Aortic valve is trileaflet and is mildly thickened. 11. The peak and mean MV gradients are 11.25mmHg 3.27mmHg as measured by doppler. 12. There is physiologic regurgitation of the prosthetic mitral valve. suboptimal study- consider KERLINE for optimal evaluation of mitral valve especially to r/o infective endocarditis 13. Moderate to severe tricuspid regurgitation present. 14. There is moderate pulmonary hypertension. 15. The right ventricular systolic pressure, as measured by Doppler, is 52.75mmHg. 16. Trace/mild (physiologic) pulmonic regurgitation. 17. There is no pericardial effusion. MAJOR ASSEMBLY INSPECTOR: Geena Deshpande RDCS
[2021-04-01 12:25] VITALS: BMI 23.0
[2021-04-01 12:42] LABS: Chol/HDL Ratio 4.47; LDL Cholesterol,Calculated 77.4 mg/dL (0.0-131.0); VLDL Calculation 26.6 mg/dL (5.00-40.00)
--- NOTE | 2021-04-01 16:13 | P.PN ---
Progress Note - Text Progress Note Date: 04/01/21 Chief Complaint: RT arm discomfort Patient is a 75-year-old female with a known history of coronary artery disease status post CABG, mitral valve replacement mechanical valve about 20 years ago at [facility], history of AICD placement, hypertension, hyperlipidemia was brought to the hospital by EMS due to complaints of chest discomfort and right upper extremity discomfort. Patient states that she went to her daughter's place yesterday and was feeling very good. Today afternoon patient suddenly developed right arm and shoulder discomfort as well as chest discomfort. Patient had some nausea associated with chest discomfort. EMS was called and patient was found to be tachycardic and EKG was showing SVT. Patient received cardioversion and converted to sinus rhythm in the ER. Repeat EKG showed sinus rhythm with ST elevation in the inferior leads. Human Resource Officer was activated and patient underwent emergent cardiac catheterization which showed mild disease involving the left circumflex and occluded right coronary artery with occluded SVG to RCA. No intervention was done. Patient was transferred to MICU. 04/01/2021: In the ICU. Has been up to the bathroom. No chest pain. Some shortness of breath. Tired. Decreased appetite. Seen by cardiology earlier. Downgraded to medical floor. Review of systems: Was done for constitutional, cardiovascular, GI, pulmonary. relevant finding as above Active Medications Aspirin (Aspirin 81 Mg) 81 mg PO DAILY [facility] Last Admin: 04/01/21 09:16 Dose: 81 mg Documented by: Atorvastatin Calcium (Atorvastatin 40 Mg Tab) 40 mg PO [facility] Carvedilol (Carvedilol 12.5 Mg Tab) 12.5 mg PO AC-BID [facility] Last Admin: 04/01/21 09:16 Dose: 12.5 mg Documented by: Cholecalciferol (Cholecalciferol 25 Mcg (1000 Iu) Tablet) 125 mcg PO DAILY [facility] Last Admin: 04/01/21 09:16 Dose: 125 mcg Documented by: Cyanocobalamin (Cyanocobalamin 500 Mcg Tab) 1,000 mcg PO DAILY [facility] Last Admin: 04/01/21 09:16 Dose: 1,000 mcg Documented by: Digoxin (Digoxin 125 Mcg Tab) 125 mcg PO DAILY [facility] Last Admin: 04/01/21 09:16 Dose: 125 mcg Documented by: Escitalopram Oxalate (Escitalopram 10 Mg Tab) 10 mg PO DAILY [facility] Last Admin: 04/01/21 09:17 Dose: 10 mg Documented by: Furosemide (Furosemide 20 Mg Tab) 20 mg PO DAILY [facility] Last Admin: 04/01/21 09:16 Dose: 20 mg Documented by: Isosorbide Mononitrate (Isosorbide Mononitrate Er 60 Mg Tab.Er.24h) 60 mg PO DAILY [facility] Last Admin: 04/01/21 09:17 Dose: 60 mg Documented by: Lisinopril (Lisinopril 5 Mg Tab) 5 mg PO DAILY [facility] Last Admin: 04/01/21 09:16 Dose: 5 mg Documented by: Miscellaneous Information (Rx Info: Iv Contrast Was Given 1 Each Misc) 1 each MISCELLANE DAILY PRN PRN Reason: Per Protocol Stop: 04/02/21 14:12 Nitroglycerin (Nitroglycerin Sl Tabs 0.4 Mg Tab) 0.4 mg SUBLINGUAL Q5M PRN PRN Reason: Chest Pain Pantoprazole Sodium (Pantoprazole 40 Mg Tablet) 40 mg PO DAILY [facility] Last Admin: 04/01/21 09:16 Dose: 40 mg Documented by: Sotalol HCl (Sotalol 120 Mg Tab) 120 mg PO BID [facility] Last Admin: 04/01/21 09:16 Dose: 120 mg Documented by: On examination: VITAL SIGNS: Afebrile, 16, 19, 120/49, 90% on 2 L GENERAL APPEARANCE: Reclining in bed, tired. HEENT: Normal external appearance of nose and ear. Oral cavity normal EYES: Pupils equal. Conjunctiva normal. NECK: JVD not raised. Mass not palpable. RESPIRATORY: Respiratory effort normal. Lungs clear to auscultation. CARDIOVASCULAR: First and second sounds normal. No edema. ABDOMEN: Soft. Liver and spleen not palpable. No tenderness. No mass palpable. PSYCHIATRY: Alert and oriented x3. Mood and affect normal. INVESTIGATIONS, reviewed in the clinical context: White count 5.6 hemoglobin 11.2 platelets 140 potassium 4.9 creatinine 0.91 Troponin I 0.323, 1.15, 1.51 LDL 77.4 LIVER: NO SIGNIFICANT ABNORMALITY 2-D ECHOCARDIOGRAM: MULTIPLE WALL MOTION ABNORMALITY. MODERATE TO SEVERE TRICUSPID REGURGITATION, MODERATE PULMONARY HYPERTENSION CHEST X-RAY: SHOWING SOME CHRONIC CHANGES Assessment and plan: -Acute non-ST elevation myocardial infarction Status post cardiac catheterization -Coronary artery disease with prior history of CABG, with chronically occluded SVG graft to the RCA Cardiac catheterization this admission. Details and cardiology notes. For medical management Aspirin, Lipitor 40 mg daily at bedtime, Coreg 12.5 by mouth twice a day, Imdur 60 mg daily, Zestril 5 mg daily, sotalol 120 mg twice a day -AICD -Mitral valve prosthetic replacement, chronic -Supraventricular tachycardia -Essential hypertension Coreg 12.5 by mouth twice a day, Imdur 60 mg daily, Zestril 5 mg daily, sotalol 100 mg twice a day -Hyperlipidemia Lipitor 40 mg daily at bedtime -GERD Prevacid 30 mg daily -Diabetes mellitus type 2 Diabetic diet. Glucophage 1000 milligrams twice a day Care was discussed with the patient. Continue current medications. Patient be moved to the cardiology telemetry floor. Follow with cardiology.
[2021-04-01 16:42] LABS: Albumin 3.8 g/dL (3.5-5.0); Calcium 9.6 mg/dL (8.4-10.2); Potassium 4.6 mmol/L (3.5-5.1); Total Bilirubin 0.9 mg/dL (0.2-1.3); Total Protein 6.2 g/dL (6.3-8.2)
[2021-04-01 16:48] LABS: Hepatitis A Antibody IgM Non-Reactive (Non-Reactive); Hepatitis B Core IgM Non-Reactive (Non-Reactive); Hepatitis B Surface Antigen Non-Reactive (Non-Reactive); Hepatitis C IgG Antibody Non-Reactive (Non-Reactive)
[2021-04-01 20:03] VITALS: RESP 16
[2021-04-01] MEDS ORDERED: ATORVASTATIN 40 MG TAB PO SCH (21:00)
[2021-04-02] MEDS: carvediloL 12.5 MG TAB PO SCH (06:24)
[2021-04-02 08:21] VITALS: TEMP 97.9
[2021-04-02] MEDS: PANTOPRAZOLE 40 MG TABLET PO SCH (08:27)
[2021-04-02] MEDS: lisinopriL 5 MG TAB PO SCH (08:27)
[2021-04-02] MEDS: CHOLECALCIFEROL 25 MCG (1000 IU) TABLET PO SCH (08:27)
[2021-04-02] MEDS: FUROSEMIDE 20 MG TAB PO SCH (08:28)
[2021-04-02] MEDS: DIGOXIN 125 MCG TAB PO SCH (08:28)
[2021-04-02] MEDS: CYANOCOBALAMIN 500 MCG TAB PO SCH (08:28)
[2021-04-02] MEDS: ASPIRIN 81 MG PO SCH (08:28)
[2021-04-02] MEDS: ESCITALOPRAM 10 MG TAB PO SCH (08:28)
[2021-04-02] MEDS: SOTALOL 120 MG TAB PO SCH (08:29)
[2021-04-02] MEDS: ISOSORBIDE MONONITRATE ER 60 MG TAB.ER.24H PO SCH (08:29)
[2021-04-02 09:05] LABS: Prothrombin Time 19.9 sec (9.0-12.0)
[2021-04-02 09:07] LABS: African American GFR (CKD) >90 (>60 ml/min/1.73 sqM); Anion Gap 7 mmol/L; Blood Urea Nitrogen 36 mg/dL (7-17); Calcium 9.6 mg/dL (8.4-10.2); Carbon Dioxide 26 mmol/L (22-30); Chloride 105 mmol/L (98-107); Glucose 125 mg/dL (74-99); Non-African American GFR(CKD) 85 (>60 ml/min/1.73 sqM); Potassium 4.6 mmol/L (3.5-5.1); Sodium 138 mmol/L (137-145)
[2021-04-02 11:06] VITALS: BP 119/67; PULSE 57
--- NOTE | 2021-04-02 11:22 | P.PN ---
Subjective This is a pleasant 75 showed female past medical history significant for mitral valve replacement with metallic valve 1997, coronary artery disease status post bypass grafting, hypertension and dyslipidemia. She follows with a ice skater at [facility]. Echocardiogram obtained reveals impaired LV systolic function with ejection fraction 35-40%, basal inferior, basal inferior septal, mid inferior and apical inferior wall motion hypokinesia, severely dilated left atrium, mildly thickened aortic valve, physiologic regurgitation of the prosthetic mitral valve with a mean gradient of 3 mmHg, moderate to severe TR, moderate pulmonary hypertension with an RVSP of 52 millimeters of mercury. Ultrasound of the liver revealed no worrisome focal intrahepatic mass or ductal dilatation. Laboratory data reviewed, INR 2.0, sodium 138, potassium 4.6, creatinine 0.68 currently maintained on aspirin 81 mg daily, atorvastatin 40 mg daily, Coreg 12.5 mg twice a day, digoxin 125 g daily, Lasix 20 mg daily, Imdur 60 mg daily, lisinopril 5 mg daily and sotalol 120 mg twice a day. GENERAL: Well-appearing, well-nourished and in no acute distress. NECK: Supple without JVD or thyromegaly. LUNGS: Breath sounds clear to auscultation bilaterally. Respiration equal and unlabored. No wheezes, rales or rhonchi. HEART: Regular rate and rhythm with metalic click in the mitral position, systolic ejection murmur at the base and apex, no rubs or gallops. S1 and S2 heard. EXTREMITIES: Normal range of motion, no edema. No clubbing or cyanosis. Peripheral pulses intact. ASSESSMENT NSTEMI SVT Troponin elevation likely related to SVT rather than ischemic event Coronary artery disease status post bypass grafting with chronically occluded SVG-RCA Status post prosthetic mitral valve replacement Hypertension Dyslipidemia History of ICD implantation Ischemic cardiomyopathy PLAN Resume warfarin for target INR 2.5-3.5. Repeat PT-INR tomorrow. Continue to increase activity as tolerated, if she continues to improve she will likely be ready for discharge tomorrow. Nurse Practitioner note has been reviewed, I agree with a documented findings and plan of care. Patient was seen and examined. Objective - Vital Signs Vital signs: Vital Signs Temp 97.9 F 04/02/21 08:21 Pulse 60 04/02/21 08:21 Resp 16 04/02/21 08:21 BP 111/64 04/02/21 08:21 Pulse Ox 94 L 04/02/21 08:21 Intake & Output 04/01/21 04/02/21 04/02/21 18:59 06:59 18:59 Intake Total 180 Output Total 1500 Balance -1500 180 Weight 58.967 kg 57.1 kg Intake: Oral 180 Output: Urine 1500 Other: Voiding Method Toilet Toilet # Voids 1 - Labs CBC & Chem 7: 04/01/21 03:26 04/02/21 07:00 Labs: Abnormal Lab Results - Last 24 Hours (Table) 04/01/21 04/01/21 04/02/21 Range/Units 03:26 15:52 07:00 PT (9.0-12.0) sec INR (<1.2) BUN 46 H 36 H (7-17) mg/dL Glucose 158 H 125 H (74-99) mg/dL AST 168 H (14-36) U/L ALT 417 H (4-34) U/L Total Protein 6.2 L (6.3-8.2) g/dL HDL Cholesterol 30.0 L (40.0-60.0) mg/dL 04/02/21 Range/Units 07:00 PT 19.9 H (9.0-12.0) sec INR 2.0 H (<1.2) BUN (7-17) mg/dL Glucose (74-99) mg/dL AST (14-36) U/L ALT (4-34) U/L Total Protein (6.3-8.2) g/dL HDL Cholesterol (40.0-60.0) mg/dL
[2021-04-02] MEDS ORDERED: WARFARIN 2 MG TAB PO ONE (18:00)
[2021-04-02] MEDS ORDERED: WARFARIN 3 MG TAB PO SCH (18:00)
--- NOTE | 2021-04-02 21:15 | P.DS ---
Providers Date of admission: 03/31/21 13:13 Expected date of discharge: 04/02/21 Attending physician: Gaetano Marroquin Consults: 03/31/21 13:13 Consult Physician Stat Consulting Provider: Brian Mackay Reason/Comments: STEMI Do you want consulting provider notified?: Already Contacted Primary care physician: Linh Pritchett [facility] Course: Chief Complaint: RT arm discomfort Patient is a 75-year-old female, patient of , with a known history of coronary artery disease status post CABG, mitral valve replacement mechanical valve about 20 years ago at [facility], history of AICD placement, hypertension, hyperlipidemia was brought to the hospital by EMS due to complaints of chest discomfort and right upper extremity discomfort. Patient states that she went to her daughter's place yesterday and was feeling very good. Today afternoon patient suddenly developed right arm and shoulder discomfort as well as chest discomfort. Patient had some nausea associated with chest discomfort. EMS was called and patient was found to be tachycardic and EKG was showing SVT. Patient received cardioversion and converted to sinus rhythm in the ER. Repeat EKG showed sinus rhythm with ST elevation in the inferior leads. Industrial Fabric Cutter was activated and patient underwent emergent cardiac catheterization which showed mild disease involving the left circumflex and occluded right coronary artery with occluded SVG to RCA. No intervention was done. Patient was transferred to MICU. 04/01/2021: In the ICU. Has been up to the bathroom. No chest pain. Some shortness of breath. Tired. Decreased appetite. Seen by cardiology earlier. Downgraded to medical floor. April 02: Doing much better. Breathing better. A bit tired. Questions were answered. Cleared by cardiology. Prescriptions done. Lipitor to be held until follow-up with oncology. Repeat LFTs and INR: 3 days Discussion and discharge planning more than 35 minutes Consultation: Cardiology associates On examination: VITAL SIGNS: 97.9, 60, 16, 111/64, 94% room air GENERAL APPEARANCE: Reclining in bed, comfortable HEENT: Normal external appearance of nose and ear. Oral cavity normal EYES: Pupils equal. Conjunctiva normal. NECK: JVD not raised. Mass not palpable. RESPIRATORY: Respiratory effort normal. Lungs clear to auscultation. CARDIOVASCULAR: First and second sounds normal. No edema. ABDOMEN: Soft. Liver and spleen not palpable. No tenderness. No mass palpable. PSYCHIATRY: Alert and oriented x3. Mood and affect normal. INVESTIGATIONS, reviewed in the clinical context: April 02: Potassium 4.6 creatinine 0.68, AST 168 ALT 417 White count 5.6 hemoglobin 11.2 platelets 140 potassium 4.9 creatinine 0.91 Troponin I 0.323, 1.15, 1.51 LDL 77.4 LIVER: NO SIGNIFICANT ABNORMALITY 2-D ECHOCARDIOGRAM: MULTIPLE WALL MOTION ABNORMALITY. MODERATE TO SEVERE TRICUSPID REGURGITATION, MODERATE PULMONARY HYPERTENSION CHEST X-RAY: SHOWING SOME CHRONIC CHANGES Assessment and plan: -Acute non-ST elevation myocardial infarction Status post cardiac catheterization. Medical management -Coronary artery disease with prior history of CABG, with chronically occluded SVG graft to the RCA Cardiac catheterization this admission. Details and cardiology notes. For medical management Aspirin, Lipitor 40 mg daily at bedtime, Coreg 12.5 by mouth twice a day, Imdur 60 mg daily, Zestril 5 mg daily, sotalol 120 mg twice a day -AICD -Mitral valve prosthetic replacement, chronic -Supraventricular tachycardia -Essential hypertension Coreg 12.5 by mouth twice a day, Imdur 60 mg daily, Zestril 5 mg daily, sotalol 100 mg twice a day -Hyperlipidemia Lipitor 40 mg daily at bedtime -GERD Prevacid 30 mg daily -Diabetes mellitus type 2 Diabetic diet. Glucophage 1000 milligrams twice a day -Acute ischemic hepatitis from an episode of hypotension: Improving Hold Lipitor until follow-up with cardiology as outpatient Disposition: Home Labs: CMP, INR 3 days Plan - Discharge Summary Discharge Rx Participant: No New Discharge Prescriptions: Continue lisinopriL [Zestril] 5 mg PO DAILY Cholecalciferol (Vitamin D3) [Vitamin D3 (125 MCG = 5,000 IU)] 125 mcg PO DAILY Furosemide [Lasix] 20 mg PO DAILY Digoxin [Lanoxin] 125 mcg PO DAILY Sotalol [Betapace] 120 mg PO BID Warfarin Sodium 4 mg PO DAILY Warfarin Sodium 6 mg PO DAILY Nitroglycerin Sl Tabs [Nitrostat] 0.4 mg SUBLINGUAL Q5M PRN #30 tab PRN Reason: Chest Pain Lansoprazole [Prevacid] 30 mg PO DAILY Escitalopram [Lexapro] 10 mg PO DAILY Cyanocobalamin (Vitamin B-12) [Vitamin B-12] 1,000 mcg PO DAILY Isosorbide Mononitrate ER [Imdur] 60 mg PO DAILY Atorvastatin [Lipitor] 40 mg PO HS metFORMIN HCL [Glucophage] 1,000 mg PO BID Carvedilol [Coreg] 12.5 mg PO BID Aspirin EC [Ecotrin Low Dose] 81 mg PO DAILY Discharge Medication List Aspirin EC [Ecotrin Low Dose] 81 mg PO DAILY 03/31/21 [History] Atorvastatin [Lipitor] 40 mg PO HS 03/31/21 [History] Carvedilol [Coreg] 12.5 mg PO BID 03/31/21 [History] Cholecalciferol (Vitamin D3) [Vitamin D3 (125 MCG = 5,000 IU)] 125 mcg PO DAILY 03/31/21 [History] Cyanocobalamin (Vitamin B-12) [Vitamin B-12] 1,000 mcg PO DAILY 03/31/21 [History] Digoxin [Lanoxin] 125 mcg PO DAILY 03/31/21 [History] Escitalopram [Lexapro] 10 mg PO DAILY 03/31/21 [History] Furosemide [Lasix] 20 mg PO DAILY 03/31/21 [History] Isosorbide Mononitrate ER [Imdur] 60 mg PO DAILY 03/31/21 [History] Lansoprazole [Prevacid] 30 mg PO DAILY 03/31/21 [History] Sotalol [Betapace] 120 mg PO BID 03/31/21 [History] lisinopriL [Zestril] 5 mg PO DAILY 03/31/21 [History] metFORMIN HCL [Glucophage] 1,000 mg PO BID 03/31/21 [History] Nitroglycerin Sl Tabs [Nitrostat] 0.4 mg SUBLINGUAL Q5M PRN #30 tab 04/02/21 [Rx] Warfarin Sodium 4 mg PO DAILY 04/02/21 [History] Warfarin Sodium 6 mg PO DAILY 04/02/21 [History] Follow up Appointment(s)/Referral(s): cardiology, [Other] - 1 Week Brian Mackay MD [STAFF PHYSICIAN] - 1 Week Linh Pritchett DO [Primary Care Provider] - 04/04/21 2:30 pm Patient Instructions/Handouts: *Surgery [facility] - After Heart Catheterization - Substation Maintenance Technician Instructions, Heart Failure (DC) Activity/Diet/Wound Care/Special Instructions: Contact CM if indigent funds if needed cmp/inr - 3 days hold lipitor till f/u with cardiology Discharge Disposition: HOME SELF-CARE
== END 2021-04-02 16:10 | disposition home or self-care (01) | DRG 281 ==
LOC: EC 12:54 → 2SICU 13:13 → 3SCARD 04-01 22:34
PROVIDERS: ADMIT Hospitalist; ATTEND Hospitalist
PROC: B2111ZZ Fluoroscopy of Multiple Coronary Arteries using Low Osmolar Contrast (ICD-10-PCS; 2021-03-31)
PROC: 5A2204Z Restoration of Cardiac Rhythm, Single (ICD-10-PCS; 2021-03-31)
PROC: 4A023N7 Measurement of Cardiac Sampling and Pressure, Left Heart, Percutaneous Approach (ICD-10-PCS; principal; 2021-03-31 12:59)
DX: I21.4 Non-ST elevation (NSTEMI) myocardial infarction (principal); I47.1 Supraventricular tachycardia; I25.810 Atherosclerosis of coronary artery bypass graft(s) without angina pectoris; E11.9 Type 2 diabetes mellitus without complications; E78.5 Hyperlipidemia, unspecified; I07.1 Rheumatic tricuspid insufficiency; I10 Essential (primary) hypertension; I25.10 Atherosclerotic heart disease of native coronary artery without angina pectoris; I25.5 Ischemic cardiomyopathy; I27.20 Pulmonary hypertension, unspecified; I48.91 Unspecified atrial fibrillation; K21.9 Gastro-esophageal reflux disease without esophagitis; K75.89 Other specified inflammatory liver diseases; Z79.01 Long term (current) use of anticoagulants; Z79.82 Long term (current) use of aspirin; Z79.84 Long term (current) use of oral hypoglycemic drugs; Z79.899 Other long term (current) drug therapy; Z95.2 Presence of prosthetic heart valve; Z95.810 Presence of automatic (implantable) cardiac defibrillator; Z88.1 Allergy status to other antibiotic agents
CPT/HCPCS: 36415; 71045; 76705; 80048; 80053; 80061; 80074; 83735; 84484; 85025; 85610; 85730; 93005; 93306; 93455; 99151; 99152; 99285

== ENCOUNTER → 2021-08-08 | Outpatient (CLI) | payer MEDICARE, OTHER ==
--- NOTE | 2021-08-08 11:57 | CT ---
EXAMINATION TYPE: CT brain wo/w con DATE OF EXAM: 08/08/2021 COMPARISON: 02/12/2020 HISTORY: Confusion and weakness CT DLP: 1999.6 mGycm Automated exposure control for dose reduction was used. CONTRAST: CT scan of the head is performed without and with IV Contrast, patient injected with 80 mL of Isovue 300. FINDINGS: There is vasogenic edema within the right parietal area with a partially enhancing lobulated mass payam suring approximately 3 cm in greatest dimension measured craniocaudally. No midline shift. Vasogenic edema extends from the right parietal to the right temporal lobe. Atherosclerotic change of the vasculature. Orbits symmetric. Calvarium intact. IMPRESSION: Extensive vasogenic edema involving the right parietal temporal lobe with lobulated 2.5 x 2.6 x 3.0 c m rim enhancing mass in the right parietal lobe. No midline shift..
== END | disposition home or self-care (01) ==
LOC: RADCTMAIN 09:40
PROVIDERS: ATTEND Internal Medicine Hematology & Oncology
DX: C34.12 Malignant neoplasm of upper lobe, left bronchus or lung (principal)
CPT/HCPCS: 82565; 84520; 70470; 36415; Q9967